=== PATIENT | female | born 1995 | race African-American/Black ===

== ENCOUNTER 2019-01-06 11:33 | Inpatient (IN) | payer OTHER ==
[~2019-01-06 11:33] MED LIST: Bupivacaine/Epinephrine 0.25% 30 ML VIAL ONE
[2019-01-06 12:32] VITALS: BMI 33.0
[2019-01-06] MEDS ORDERED: hydrALAZINE 20 MG/ML VIAL SLOW IVP PRN (12:54)
[2019-01-06 12:55] LABS: Amnisure Test RUPTURE DETECTED (No Rupture)
[2019-01-06 12:56] LABS: Amnisure Internal Control QC ACCEPTABLE (ACCEPTABLE)
[2019-01-06] MEDS ORDERED: Betamet Acet/Betamet Na Ph 30 MG/5 ML VIAL ONE (13:00)
[2019-01-06] MEDS ORDERED: Betamet Acet/Betamet Na Ph 30 MG/5 ML VIAL IM SCH (13:00)
--- NOTE | 2019-01-06 13:35 | PDOC.EVN ---
Event Note - Event Note Event Note: OBGYN Attending note Date: 01/06/19 time: [address] DX: Known Twin gestation (type not sure) at 31 weeks 4 days CC: vag dsch HPI: 23 yo with known twins (type unsure) at 31.4 weeks, s/p vaginal intercourse last PM, now with blood tinged secretions on tissue. No large gush of blood, no large gush of fluid. Good FM. No fevers, no HX trauma. Denies issues. Review of Systems: complete ROS completed and as per HPI Past medical HX: none Past Surgical HX: none Past OB HX: x1 Allergies: None Social: negative PHYSICAL: 142/84 57 20 afebrile NAD ABD gravid Pelvic pending Monitors: I have reviewed the FHT...no CTX on toco, FHTs x 2 wnl for EGA A/P: 31.4 week twins with possible ROM, s/p vaginal intercourse last PM. AMNISURE was pos Plan: 1. we will perform SSE 2. VP3 3. Celestone for twins regardless, basaed on PPROM concern 4. no FFN due to recent sex 5. If ROM on SSE: needs admit for MAG for neuroprotecton, steroid and IV ABX X 48 hrs, then po per ACOG Notify Mo after SSE. Likely will keep even if SSE is negative (false pos Amnisure) for observation.
[2019-01-06] MEDS ORDERED: Promethazine HCl 25 MG/ML VIAL IM PRN (13:52)
[2019-01-06] MEDS ORDERED: Ondansetron PF 4 MG/2 ML Vial IVP PRN (13:52)
--- NOTE | 2019-01-06 14:24 | PRG ---
DATE OF SERVICE: 01/06/2019 In brief, I have discussed the case with NICU and they will come and talk to the patient about expectations should the patient deliver at 31 or 32 weeks. I have also notified Dr. Hassan of his patient's arrival. While we will watch her today, he will come resume care of her tomorrow January 07. Job ID: [id number]
--- NOTE | 2019-01-06 14:43 | PRG ---
DATE OF SERVICE: 01/06/2019 TIME OF EVALUATION: Roughly 1345 until 1400. LOCATION: R room 6. Sterile speculum examination note and plan: 1. In brief, I was in LDR 6 along with Keyonna Powell (resident on-call) and Alex Sexton (M3) for the performance of the sterile speculum examination. I confirmed that the sterile speculum examination showed no overt pooling, Valsalva and cough were both negative. Based on the clinical assessment, there is no clinical evidence of rupture of membranes at this time. However, as the AmniSure was positive, at this point assumed to be a false positive AmniSure, I have explained to the patient that the most conservative option would be to watch her for 24 hours and give her Celestone administration. The first one was already given at 1300, making the next one tomorrow January 07 at 1300. As I do not feel based on exam that she is currently ruptured, we will not give magnesium sulfate for neuro protection nor give extended antibiotics (ampicillin and erythromycin) at this time. We will keep the patient on pad counts for now, but again, I do not have a high clinical suspicion that she is ruptured. 2. The patient's blood pressure was also 140 over low 90s on 1st blood pressure when she arrived, this may be due to normal expected anxiety. However, we will continue to follow this during this time as well. I have also ordered a complete metabolic profile in addition to the CBC for this evaluation. 3. I have also ordered an ultrasound to check weight for record. 4. I have also asked for NICU to come see the patient just in case her false positive and that being a true positive on the AmniSure. 5. I do not feel that repeating the AmniSure test either now or in 24 hours is helpful as a clinical exam will drive management at this time. 6. I did explain that to the patient and her the entire plan of care and wrote it on the board for them to follow. Once again, I do believe that the AmniSure at this time is false positive, as stated in the ACOG bulletin. Nonetheless, we will still give her steroids as positive AmniSure, but negative exam has a chance of delivery within the ensuing two weeks. Job ID: [id number] [facility]
[2019-01-06 14:50] LABS: #Basophils 0.1 thou/uL (0.0-0.2); #Lymphocytes 2.4 thou/uL (1.20-3.40); #Monocytes 0.7 thou/uL (0.11-0.59); #Neutrophils 4.7 thou/uL (1.40-6.50); %Basophils 0.9 % (0.0-1.0); %Eosinophils 0.4 % (0.0-10.0); %Lymphocytes 30.7 % (21.0-51.0); %Monocytes 8.6 % (0.0-10.0); %Neutrophils 59.4 % (42.0-75.0); Hemoglobin 11.1 g/dL (12.0-16.0); Mean Corpuscular Hemoglobin 30.8 pg (27.0-31.0); Mean Corpuscular Volume 90.6 fL (78.0-98.0); Mean Platelet Volume 7.8 fL (7.4-10.4); Platelet Count 233 thou/uL (130-400); RBC Distribution Width 12.6 % (11.5-14.5); White Blood Cell (WBC) Count 7.9 thou/uL (4.8-10.8)
[2019-01-06 15:00] LABS: Creatinine, Urine 225.09 mg/dL (47-110)
[2019-01-06 15:09] LABS: ALT (SGPT) Less than 7 U/L (8-55); AST (SGOT) 12 U/L (5-34); Albumin 3.3 g/dL (3.5-5.0); Alkaline Phosphatase 159 U/L (40-110); Anion Gap 13 mmol/L (10-20); BUN (Urea Nitrogen) 6 mg/dL (7.0-18.7); Bilirubin, Total 0.4 mg/dL (0.2-1.2); Calc. Creatinine Clearance 206 mL/min (70-130); Carbon Dioxide 27 mmol/L (22-29); Chloride 102 mmol/L (98-107); Estimated GFR-MDRD Greater than 90; Globulin 3.6 g/dL (2.4-3.5); Glucose 72 mg/dL (70-105); Protein, Total 6.9 g/dL (6.0-8.3); Sodium 138 mmol/L (136-145)
[2019-01-06 15:23] LABS: Syphilis Antibody Nonreactive (Nonreactive); Syphilis Antibody Index 0.05 S/CO (<1.00 Non-Reactive)
[2019-01-06 15:24] LABS: HIV (1/2) Antibody/Antigen Non-Reactive (NonReactive); HIV 1/2 INDEX 0.06 S/CO (<1.00); Hep B Surf Ag Non-Reactive S/CO (NonReactive)
--- NOTE | 2019-01-06 17:24 | PDOC.APC ---
Antepartum Consult MINOO MARC is a 23 year old female at [31w 4d] gestational weeks. I was asked by Dr. Gates to speak with the patient regarding anticipated course for a baby born at 31-32 weeks. I outlined that the timing and mode of delivery is a decision that will be made by the OB service. Once the patient is taken for delivery, the resuscitation team will be present. The initial focus will be on respiratory stabilization and may include minimal assistance, CPAP or intubation with surfactant administration. I discussed that the patient will need to be admitted to the NICU in an isolette due to temperature instability associated with prematurity. We will then obtain IV access ( peripheral or umbilical) as babies are at risk for hypoglycemia. We discussed that babies born are at higher risk for feeding intolerance, infection and jaundice. I discussed that breastmilk is the best nutrition for babies and she is strongly encouraged to pump after delivery. Mother does plan to breastfeed and we discussed the availability of donor milk and mom consented to use. We discussed slowly increasing enteral feedings and the use of IVF or TPN while increasing feeding volumes. I outlined the need for a feeding tube (OG or NG) until suck/swallow/breathe reflex can be established. We discussed that depending on the size of the baby, he may need ROP or head US screening. I explained that the duration of hospital stay will be determined on the clinical course of the baby. I outlined the milestones that needed to be achieved to ensure safe discharge home. They had the opportunity to ask questions. I encouraged them to contact our service again if additional questions arise. Labs: Ante Labs Blood Type B POSITIVE 01/06/19 15:06 Hep Bs Antigen Non-Reactive S/CO (NonReactive) 01/06/19 14:31
[2019-01-06] MEDS ORDERED: Ondansetron ODT 4 MG TAB PO PRN (19:21)
--- NOTE | 2019-01-06 20:12 | ULT ---
OB ULTRASOUND: HISTORY: Twin gestation. Evaluation and presentation, estimated weight and JAYLON. FINDINGS: Real-time imaging of the pelvis shows a twin viable intrauterine . Both twins are in a verte x presentation. The amniotic fluid index of twin A is 4.5 and of twin B is 10.6. The dividing membran e is difficult to visualize. The placenta is anterior in location. I am not certain whether this is a common placenta or two placentas directly adjacent to each other. measurements of twin A are as follows: BPD: 7.4 cm (29 weeks 6 days) Head circumference: 26.7 cm (29 weeks 1 day) Abdominal circumference: 22.3 cm (26 weeks 5 days) Femur length: 5.8 cm (30 weeks 1 day) measurements of twin B are as follow: BPD: 7.3 cm (29 weeks 2 days) Head circumference: 26.4 cm (28 weeks 5 days) Abdominal circumference: 25.2 cm (29 weeks 3 days) Femur length: 5.9 cm (31 weeks 0 days) IMPRESSION: 1. Twin A, which is in a vertex presentation, more on the maternal left side, has measurements corres ponding to a gestational age of 29 weeks 0 days and an estimated date of delivery of 03/24/2019. Est imated weight is 1217 plus or minus 180 g. 2. Twin B is also in a vertex presentation with overall measurements corresponding to 29 weeks 4 days , estimated date of delivery of 03/20/2019. Estimated weight is 1465 plus or minus 220 g. 3. Probable common anterior placenta. 4. It is very difficult to calculate the amniotic fluid index for these two twins and this was discus sed with the technologist. The amniotic fluid of twin A appears decreased as to twin B but this is ve ry equivocal and it is difficult to see the membrane to be sure which twin amniotic fluid volume you are measuring. POS: [facility]
--- NOTE | 2019-01-06 21:45 | PDOC.EVN ---
Event Note - Event Note Event Note: Bed Check: Per RN...peripads are still dry No gross evidence ROM at this time Continue OBS
[2019-01-07] MEDS ORDERED: Calcium Gluc 4.6 MEQ/10 ML (100 MG/ML) SLOW IVP PRN (01:41)
--- NOTE | 2019-01-07 01:44 | PDOC.EVN ---
Event Note - Event Note Event Note: Patient just checked by ALEX Adam...3cm dilated. As we only performed SSE prior and not a digital exam, I am nout sure if this is new dilation or not. I have ordered her second celestone at 12 hrs from the first. Start Mag Sulfate for neuroprotection.
[2019-01-07] MEDS ORDERED: Betamet Acet/Betamet Na Ph 30 MG/5 ML VIAL IM SCH (01:45)
[2019-01-07] MEDS ORDERED: Magnesium Sulfate 20 gm/500 ml 20 GM/500 ML BAG IVPB SCH (01:45)
[2019-01-07] MEDS ORDERED: Magnesium Sulfate 20 GM/WATER 500 ML BAG IVPB SCH (01:45)
[2019-01-07] MEDS ORDERED: Butorphanol Tartrate 1 MG/ML VIAL SLOW IVP PRN ×2 (01:50→03:50)
--- NOTE | 2019-01-07 02:18 | PDOC.EVN ---
Event Note - Event Note Event Note: Still no gross evidence of ROM but I will start Amp and Erythro IV to be conservative
[2019-01-07] MEDS ORDERED: Lactated Ringer's 1,000 ML IV SCH (02:30)
[2019-01-07] MEDS: Ampicillin 2 GM in Sodium Chloride 0.9% 100 ML IVPB SCH (02:44)
[2019-01-07] MEDS ORDERED: Erythromycin 500 MG in Sodium Chloride 0.9% 250 ML 250 ML IVPB SCH (04:00)
[2019-01-07] MEDS ORDERED: Fentanyl 4 mcg/Bup 0.1% Cadd 100 ML ONE (04:01)
--- NOTE | 2019-01-07 04:03 | PDOC.EVN ---
Event Note - Event Note Event Note: Patient is now 5-6cm. We will notify NICU. Both babies cephalic on sono Dr Hassan to be called now. Deliver as double set up
[2019-01-07] MEDS ORDERED: Fentanyl 100 MCG/2 ML VIAL ONE (04:17)
[2019-01-07] MEDS ORDERED: NS / Oxytocin 40 units/1000ml 1,000 ML ONE (05:05)
[2019-01-07] MEDS ORDERED: Lidocaine 1% (PF) 30 ML VIAL ONE (05:06)
--- NOTE | 2019-01-07 05:36 | PDOC.EVN ---
Event Note - Event Note Event Note: Delivery note: Dictated x 2...vertex presentations No complications Both females vigorous. NICU present in OR for double set up See full Dictation Placenta to path Arterial cord gases requested x 2
--- NOTE | 2019-01-07 05:48 | DN ---
DATE OF PROCEDURE: 01/07/2019 TIME OF DELIVERY: 0515 hours for twin A and 0524 hours for twin B. TWINS PREOPERATIVE DIAGNOSIS: This is a patient with a known twin gestation with both babies in a cephalic/vertex presentation who is complete and is now in the OR in Labor and Delivery for a double setup. EGA 31-32 weeks POSTOPERATIVE DIAGNOSIS: 1. This is a patient with a known twin gestation with both babies in a cephalic/vertex presentation who is complete and is now in the OR in Labor and Delivery for a double setup. EGA 31- 32 weeks 2. Status post vaginal delivery x2 of two twin females. PROCEDURE PERFORMED: Spontaneous vaginal delivery x2. VENETIAN BLIND ASSEMBLER: Mike Burton MD, who was scrubbed and on standby incase twin B converted to noncephalic. It is important to note that Dr. Hassan arrived just as I was delivering the placentas and he was in the room, but did not participate with the delivery or the placental management. FINDINGS: Twin A delivered at 0515 hours, female, vigorous. This was followed by artificial rupture of membranes by me at 0522 hours of clear fluid. This was followed by delivery of twin B, again another female, at 0524 hours. Both were vertex. Both were vigorous. I put an umbilical clamp on the cord of twin B as the placenta was going to Pathology. The placenta delivered about 5 minutes after twin B and two fused placentas delivered intact. ESTIMATED BLOOD LOSS: About 200 to 300 mL maximum. COMPLICATIONS: None. COUNTS: Correct. VAGINAL PACKS: None. DISPOSITION: To recovery room in good and stable condition. NARRATIVE: In brief, when this patient was found to be complete, we moved her to the operating room for a double setup. This was in case twin B converted to noncephalic. I confirmed babies positions with ultrasound and then put on a surgical gown. I delivered twin A without complication and then twin B quickly followed. Both were in a cephalic presentation. Dr. Hassan arrived, but this was after the third stage. He will resume care from now on. Job ID: [id number] [facility]
[2019-01-07 05:53] LABS: Actual Bicarbonate (HCO3v) 21 mEq/L (22-28); Base Excess -7.9 mEq/L (-2.0 to +3.0)
[2019-01-07 06:02] LABS: Actual Bicarbonate (HCO3a) 22.9 mEq/L (22-28); Base Excess (BEa) -4.9 mEq/L (-2.0 to +3.0)
[2019-01-07 06:05] LABS: Actual Bicarbonate (HCO3v) 20 mEq/L (22-28); Base Excess -6.2 mEq/L (-2.0 to +3.0); pH (Cord, venous) 7.31 (7.32-7.43)
[2019-01-07] MEDS ORDERED: Varicella virus, LIVE 0.5 ML VIAL SC ONE (09:08)
[2019-01-07] MEDS ORDERED: Misoprostol 200 MCG TAB VAG PRN (09:08)
[2019-01-07] MEDS ORDERED: Milk Of Magnesia 30 ML UDCUP PO PRN (09:08)
[2019-01-07] MEDS ORDERED: Zolpidem Tartrate 5 MG TAB PO PRN (09:08)
[2019-01-07] MEDS ORDERED: Lanolin Ointment 7 GM TUBE TOP PRN (09:08)
[2019-01-07] MEDS ORDERED: hydrALAZINE 20 MG/ML VIAL SLOW IVP PRN (09:08)
[2019-01-07] MEDS ORDERED: HYDROcodone/Acetaminophen 5/325 mg Tablet PO PRN (09:08)
[2019-01-07] MEDS ORDERED: Preparation H Ointment 28 GM TUBE PR PRN (09:08)
[2019-01-07] MEDS ORDERED: Bisacodyl 10 MG SUPP PR PRN (09:08)
[2019-01-07] MEDS ORDERED: diphenhydrAMINE 25 MG CAP PO PRN (09:08)
[2019-01-07] MEDS ORDERED: NS / Oxytocin 40 units/1000ml 1,000 ML IV SCH (09:08)
[2019-01-07] MEDS ORDERED: Adacel (T-DAP) 0.5 ML SYRINGE IM ONE (09:08)
[2019-01-07] MEDS ORDERED: Promethazine HCl 25 MG/ML VIAL IM PRN (09:08)
[2019-01-07] MEDS ORDERED: Ibuprofen 800 MG TAB PO SCH (09:08)
[2019-01-07] MEDS ORDERED: Measles/Mumps/Rubella 10 MCG/0.5 ML VIAL SC ONE (09:08)
[2019-01-07] MEDS ORDERED: Benzocaine-Menthol 82.5 ML CAN TOP PRN (09:08)
[2019-01-07] MEDS ORDERED: Ferrous Sulfate 325 MG TAB PO SCH (09:30)
[2019-01-07] MEDS ORDERED: Prenatal Vitamin 1 TAB PO SCH (09:30)
[2019-01-07] MEDS ORDERED: Docusate Calcium (SURFAK) 240 MG CAP PO SCH (09:30)
[2019-01-07] MEDS: Ferrous Sulfate 325 MG TAB PO SCH (14:41)
[2019-01-07] MEDS: HYDROcodone/Acetaminophen 5/325 mg Tablet PO PRN ×2 (16:46→21:51)
[2019-01-07] MEDS: Ibuprofen 800 MG TAB PO SCH (21:51)
[2019-01-07] MEDS: Docusate Calcium (SURFAK) 240 MG CAP PO SCH (21:52)
[2019-01-08] MEDS: Ibuprofen 800 MG TAB PO SCH ×3 (06:12→22:17)
[2019-01-08 07:06] LABS: Hemoglobin 10.6 g/dL (12.0-16.0); Mean Corpuscular HGB CONC 32.6 g/dL (32.0-36.0); Mean Corpuscular Hemoglobin 29.8 pg (27.0-31.0); Mean Corpuscular Volume 91.4 fL (78.0-98.0); Mean Platelet Volume 8.2 fL (7.4-10.4); Platelet Count 217 thou/uL (130-400); RBC Distribution Width 12.7 % (11.5-14.5); Red Blood Cell (RBC) Count 3.57 mill/uL (4.20-5.40); White Blood Cell (WBC) Count 15.8 thou/uL (4.8-10.8)
[2019-01-08] MEDS: Ferrous Sulfate 325 MG TAB PO SCH ×2 (07:19→16:33)
[2019-01-08] MEDS: Prenatal Vitamin 1 TAB PO SCH (09:15)
[2019-01-08] MEDS: Docusate Calcium (SURFAK) 240 MG CAP PO SCH ×2 (09:17→22:18)
[2019-01-08] MEDS: Ampicillin 2 GM in Sodium Chloride 0.9% 100 ML IVPB SCH (09:29)
[2019-01-08] MEDS: HYDROcodone/Acetaminophen 5/325 mg Tablet PO PRN ×3 (10:19→22:17)
--- NOTE | 2019-01-08 20:56 | PDOC.PP ---
Post Progress Note Post Day #: 1 PO intake tolerated: yes Flatus: yes Ambulation: yes Weight Weight 217 lb - Physical Examination General: NAD Cardiovascular: no m/r/g, RRR Respiratory: non-labored breathing Abdominal: + bowel sounds, lochia, no distention Extremities: negative homans (B) Neurological: no gross focal deficits Psychiatric: A&Ox3, normal affect (S/P of twins. Patient is in the NICU tonight doing skin to skin contact with both babies. No new complaints. Anticipate DC to boarding status tomorrow.) Result Diagrams: 01/08/19 06:26 01/06/19 14:31 Additional Labs: Post Labs Blood Type B POSITIVE 01/06/19 15:06 Hep Bs Antigen Non-Reactive S/CO (NonReactive) 01/06/19 14:31
[2019-01-09] MEDS: HYDROcodone/Acetaminophen 5/325 mg Tablet PO PRN (05:49)
[2019-01-09] MEDS: Ibuprofen 800 MG TAB PO SCH (05:50)
[2019-01-09 08:10] VITALS: BP 130/69; TEMP 98
[2019-01-09] MEDS: Ferrous Sulfate 325 MG TAB PO SCH ×2 (08:25→09:26)
[2019-01-09] MEDS: Docusate Calcium (SURFAK) 240 MG CAP PO SCH (08:26)
[2019-01-09] MEDS: Prenatal Vitamin 1 TAB PO SCH (08:26)
== END 2019-01-09 10:15 | disposition home or self-care (01) | DRG 807 ==
LOC: L&D/OP 11:33 → L&D 14:05 → OBSVTOIN 14:05 → 3SW 01-07 12:23
PROVIDERS: ADMIT Obstetrics & Gynecology; ATTEND Obstetrics & Gynecology
PROC: 10E0XZZ Delivery of Products of Conception, External Approach (ICD-10-PCS; principal; 2019-01-07)
PROC: 10907ZC Drainage of Amniotic Fluid, Therapeutic from Products of Conception, Via Natural or Artificial Opening (ICD-10-PCS; 2019-01-07)
DX: O60.14X1 Preterm labor third trimester with preterm delivery third trimester, fetus 1 (principal); Z37.2 Twins, both liveborn; O60.14X2 Preterm labor third trimester with preterm delivery third trimester, fetus 2; Z3A.31 31 weeks gestation of pregnancy; O30.043 Twin pregnancy, dichorionic/diamniotic, third trimester; Z28.21 Immunization not carried out because of patient refusal
CPT/HCPCS: 36415; 51702; 76810; 80053; 82570; 82805; 84112; 84156; 85025; 85027; 86762; 86780; 86850; 86900; 86901; 87077; 87081; 87340; 87389; 87480; 87510; 87660; 88307; 99285; J0290; J0595; J0702; J1364; J2001; J3010; J3475; J3490; J7050; Q0162

== ENCOUNTER 2019-01-10 04:07 | Observation (INO) | payer OTHER ==
[2019-01-10 04:38] LABS: #Basophils 0.1 thou/uL (0.0-0.2); #Eosinphils 0.1 thou/uL (0.0-0.7); #Lymphocytes 5.4 thou/uL (1.20-3.40); #Monocytes 1.3 thou/uL (0.11-0.59); %Basophils 0.7 % (0.0-1.0); %Eosinophils 0.5 % (0.0-10.0); %Lymphocytes 38.8 % (21.0-51.0); %Monocytes 9.5 % (0.0-10.0); %Neutrophils 50.4 % (42.0-75.0); Hemoglobin 10.5 g/dL (12.0-16.0); Mean Corpuscular HGB CONC 33.1 g/dL (32.0-36.0); Mean Corpuscular Volume 90.6 fL (78.0-98.0); Platelet Count 213 thou/uL (130-400); RBC Distribution Width 12.7 % (11.5-14.5); Red Blood Cell (RBC) Count 3.49 mill/uL (4.20-5.40); White Blood Cell (WBC) Count 13.8 thou/uL (4.8-10.8)
[2019-01-10] MEDS ORDERED: Acetaminophen 500 MG TAB ONE (04:58)
[2019-01-10 05:01] LABS: ALT (SGPT) 10 U/L (8-55); AST (SGOT) 18 U/L (5-34); Albumin 3.1 g/dL (3.5-5.0); Alkaline Phosphatase 106 U/L (40-110); Anion Gap 15 mmol/L (10-20); BUN (Urea Nitrogen) 11 mg/dL (7.0-18.7); Bilirubin, Total 0.2 mg/dL (0.2-1.2); CK (CPK) 37 U/L (29-168); Calc. Creatinine Clearance 0 mL/min (70-130); Calcium 8.7 mg/dL (7.8-10.44); Carbon Dioxide 20 mmol/L (22-29); Chloride 109 mmol/L (98-107); Estimated GFR-MDRD Greater than 90; Globulin 3.2 g/dL (2.4-3.5); Glucose 90 mg/dL (70-105); Potassium 4.6 mmol/L (3.5-5.1); Protein, Total 6.3 g/dL (6.0-8.3); Sodium 139 mmol/L (136-145)
[2019-01-10 05:25] LABS: Bilirubin Negative (Negative); Blood, Urine 2+ (Negative); Clarity Clear (Clear); Glucose, Urine (Dipstick) Normal (Negative); Leukocyte 75 Leu/uL (Negative); Nitrite Negative (Negative); Protein, Urine (Dipstick) 20 mg/dL (Neg-Trace); Squamous Epithelial 0-3 HPF (0-3); Urobilinogen Normal mg/dL (Less than 2)
[2019-01-10] MEDS ORDERED: hydrALAZINE 20 MG/ML VIAL ONE (05:28)
[2019-01-10 05:40] LABS: Bacteria/HPF 1+ HPF (None Seen); Renal Epithelial 0-3 HPF (None Seen); Transitional Epithelial 0-3 HPF (None Seen)
[2019-01-10] MEDS ORDERED: Furosemide 40 MG/4 ML VIAL SLOW IVP SCH (07:30)
[2019-01-10] MEDS ORDERED: diphenhydrAMINE 50 MG/ML VIAL IVP SCH (07:30)
[2019-01-10 08:34] LABS: Amphetamine Not Detected (NotDetected); Barbiturates Screen Not Detected (NotDetected); Benzodiazepine Screen Not Detected (NotDetected); Cocaine Metabolite Screen Not Detected (NotDetected); Medtox Control Line Valid? VALID (VALID); Medtox Reader # READER 1; Methadone Not Detected (NotDetected); Methamphetamine Not Detected (NotDetected); Opiate Screen Detected (NotDetected); Oxycodone Screen Not Detected (NotDetected); Phencyclidine (PCP) Not Detected (NotDetected); THC/Cannabinoid Screen Detected (NotDetected); Tricyclic Screen Not Detected (NotDetected)
--- NOTE | 2019-01-10 08:44 | CT ---
PRELIMINARY REPORT/[facility]/EMERGENCY AFTER HOURS PROCEDURE: PROCEDURE INFORMATION: Exam: CT Angiography Chest With Contrast Exam date and time: 01/10/2019 5:07 AM Clinical history: 23 years old, female; Patient HX: Er 13. Chest pain; Centralized cp; PT is post par sana 2 days ago. TECHNIQUE: Imaging protocol: Computed tomographic angiography of the chest with intravenous contrast. 3D renderi ng: MIP reconstructed images were created and reviewed. COMPARISON: No relevant prior studies available. FINDINGS: Pulmonary arteries: No pulmonary emboli. Aorta: No aortic dissection. Small scar/atelectasis in the left lower lobe. Calcified granuloma in th e left lower lobe Lungs: No consolidation. No masses. Pleural space: No pneumothorax. No pleural effusion. Heart: No pericardial effusion. Lymph nodes: No enlarged lymph nodes. Bones/joints: No acute fracture. Soft tissues: Unremarkable. IMPRESSION: 1: No acute findings. 2: No pulmonary emboli Thank you for allowing us to participate in the care of your patient. Dictated and Authenticated by: Stepan Lipscomb MD 01/10/2019 6:01 AM Central Time ([place] & [place]) FINAL REPORT EMERGENCY AFTER HOURS CT ANGIO CHEST: FINDINGS/IMPRESSION: I agree with the above provided preliminary interpretation from [facility].
--- NOTE | 2019-01-10 09:02 | RAD ---
FRONTAL VIEW CHEST: INDICATION: Pain. FINDINGS: Lungs are clear. No effusion or pneumothorax. The patient is rotated accentuating the cardiac silho uette. IMPRESSION: No focal consolidation. POS: C
--- NOTE | 2019-01-10 10:27 | HP ---
PRIMARY OB: Dr. Zacarias Hassan. CHIEF COMPLAINT: Chest pain. HISTORY OF PRESENT ILLNESS: The patient is a 23-year-old female, day #2, status post delivery of 31-week twins, who presented to the emergency room this morning from the [facility] with chest pain. Down in the emergency room, the patient had a CT angiogram, chest x-ray, EKG, troponins, and BNP to look for evidence of NC, cardiomyopathy, and pulmonary embolism, although her labs have returned negative. The patient was noted to have severe range blood pressures in the 1st hour that she was there, prompting hydralazine 20 mg IV x1. The patient was transferred to Labor and Delivery for evaluation. Upon arrival, the patient reports that she has been having chest pains for the last couple of days and admits that she is overly anxious for her babies and how they are going to do being premature. The patient reports she does have a history of anxiety and has been on medications in the past for that. The patient denies headache, abdominal pain. She reports some shortness of breath. PAST MEDICAL HISTORY: Negative. PAST SURGICAL HISTORY: Negative. ALLERGIES: NO KNOWN DRUG ALLERGIES. MEDICATIONS: vitamins. SOCIAL HISTORY: Denies drug, alcohol, or tobacco use. She has 2 babies in the NICU currently. PHYSICAL EXAMINATION: VITAL SIGNS: Most recent blood pressure is 126/76, heart rate of 80, saturating 100% on room air, was tachypneic at the time of my presentation, breathing heavy. GENERAL: She appears to be somewhat anxious, otherwise alert, oriented, cooperative, and pleasant to interact with. HEENT: Head is normocephalic, atraumatic. LUNGS: Clear to auscultation bilaterally. HEART: Regular rate and rhythm. ABDOMEN: Soft, nontender. EXTREMITIES: Nontender, nonedematous. LABORATORY DATA: Labs performed on the emergency room shows a sodium of 139, potassium of 4.9, BUN of 11, creatinine of 0.7, AST of 18, ALT of 10. Troponins of less than 0.010. BNP of 73. Urine protein of 1+, nitrite is negative, creatinine 78, 1+ bacteria, 75 leukocyte esterase. Again, CT angiogram and chest x-ray reported off verbally from the ER physician as being negative for any pathology. ASSESSMENT AND PLAN: The patient is a 23-year-old day #2, status post delivery of 31-week twins, admitted for chest pain. Workup does not suggest any evidence of pulmonary embolism, cardiomyopathy, NC. The patient did have elevated pressures and may be developing preeclampsia. She was given 20 of hydralazine down in the emergency room. Her workup has otherwise been negative so far. We are awaiting on a urine protein random quant to calculate khltagu-[id number] ratio. Blood pressures in the 120s currently. She has Lasix on order. If her pressure starts spiking again, then would institute magnesium for seizure prophylaxis. I have also given her Benadryl to help with sedation and start her on Zoloft 50 mg daily. I have reported the patient after primary OB, Dr. Hassan, who will be assuming care and will be keeping an eye on her today. Of note, urine drug screen is pending. Job ID: [id number] [facility]
[2019-01-10] MEDS ORDERED: Ibuprofen 800 MG TAB PO PRN (14:39)
[2019-01-10] MEDS ORDERED: Iopamidol 370 76% 100 ML VIAL ONE (15:38)
[2019-01-10] MEDS ORDERED: Acetaminophen 500 MG TAB PO PRN (18:35)
[2019-01-10] MEDS ORDERED: NIFEdipine XL 30 MG TAB PO SCH (19:00)
[2019-01-10 19:55] VITALS: BP 140/85
[2019-01-10 20:55] VITALS: TEMP 98.3
--- NOTE | 2019-01-10 21:23 | PDOC.LDHP ---
Labor and Delivery H&P HPI: 23 y/o now PPD #3 from PTL/PPROM of twins. She was admitted through the ER and with the help of Dr. Harris who evaluated her thoroughly. Evaluations for PE and TX were Neg. Pt appeared anxious/depressed. She was started on Zoloft 50mg po qDay. BP was initially elevated, now much improved. Pt appears to be completely stable, content, and doing as well as earlier in the week. We will DC on Procardia XL 30mg po qDay, and continue Zoloft 50mg po qDay out patient. Clinical F/U with me in 1-2 weeks stressed again today. Pt will attempt to get back the the [facility] here if possible. Allergies/Adverse Reactions: Allergies Allergy/AdvReac Type Severity Reaction Status Date / Time No Known Allergies Allergy Unverified 01/10/19 08:33
[2019-01-11] MEDS ORDERED: NIFEdipine XL 30 MG TAB PO SCH (09:00)
== END 2019-01-10 21:10 | disposition home or self-care (01) ==
LOC: ERS 04:07 → L&D-LIB 06:04 → L&D 14:34
PROVIDERS: ADMIT Obstetrics & Gynecology; ATTEND Obstetrics & Gynecology
DX: O99.89 Other specified diseases and conditions complicating pregnancy, childbirth and the puerperium (principal); R07.9 Chest pain, unspecified; R03.0 Elevated blood-pressure reading, without diagnosis of hypertension; O99.355 Diseases of the nervous system complicating the puerperium; F41.9 Anxiety disorder, unspecified; F32.9 Major depressive disorder, single episode, unspecified
CPT/HCPCS: 51702; 71045; 71275; 80053; 80306; 81003; 81015; 82550; 82570; 83880; 84156; 84484; 85025; 93005; 94760; 96374; 99285; G0378; J0360; Q9967